=== PATIENT | male | born 1990 | race Caucasian/White ===

== ENCOUNTER 2016-07-19 15:07 | Emergency (ER) | payer OTHER ==
[~2016-07-19] VITALS: Ht 182.9 cm; Wt 140.7 kg
[~2016-07-19 15:07] MED LIST: BACLOFEN10 MG PO; OXAYDO5 MG PO; ULTRAM50 MG PO
[2016-07-19 15:53] LABS: HEMATOCRIT 49.1 % (38.0-50.0); MCH 30.8 PG (29.0-34.0); MCHC 36.3 G/DL (30.0-36.0); MCV 84.9 FL (86-99); MEAN PLAT.VOLUME 12.4 uM^3 (9.0-12.4); PLATELET COUNT 306 K/uL (156-360); RBC DIS.WIDTH-CV 12.6 % (11.8-14.6); RBC DIS.WIDTH-SD 38.3 % (39-53); RED BLOOD COUNT 5.78 M/uL (4.00-5.50); WHITE BLOOD COUNT 12.5 K/uL (4.1-10.2)
[2016-07-19 16:02] LABS: CHLORIDE 96 mEq/L (99-109); POTASSIUM 4.2 mEq/L (3.7-5.4); SODIUM 133 mEq/L (136-147)
[2016-07-19 16:03] LABS: GLUCOSE 390 mg/dL (70-99)
[2016-07-19 16:05] LABS: ANION GAP 19 MEQ/L (2-14)
[2016-07-19 16:07] LABS: GFR ESTIMATE (CALCULATED) > 59 mL/min/
[2016-07-19 16:08] LABS: UREA NITROGEN (BUN) 8 mg/dL (9-23)
[2016-07-19] MEDS ORDERED: BENADRYL50 MG PO (16:27)
[2016-07-19] MEDS ORDERED: PEN-VEE K,VEET500 MG PO (16:27)
[2016-07-19] MEDS ORDERED: PREDNISONE10 MG PO (16:27)
[2016-07-19 16:43] VITALS: BP 145/99
== END 2016-07-19 16:45 | disposition home or self-care (01) ==
LOC: EME 15:07
DX: J02.9 Acute pharyngitis, unspecified (principal); R73.9 Hyperglycemia, unspecified; F17.200 Nicotine dependence, unspecified, uncomplicated
CPT/HCPCS: 71020; 80048; 85027; 99281; 99284

== ENCOUNTER 2016-07-25 07:10 | Emergency (ER) | payer OTHER ==
[~2016-07-25] VITALS: Ht 182.9 cm; Wt 137.0 kg
[~2016-07-25 07:10] MED LIST changes: +BENADRYL50 MG PO; +PEN-VEE K,VEET500 MG PO; +PREDNISONE10 MG PO
[2016-07-25 08:11] LABS: POINT-OF-CARE METER ID UU13113702
[2016-07-25 08:28] LABS: HEMATOCRIT 47.3 % (38.0-50.0); MCH 31.1 PG (29.0-34.0); MCHC 35.7 G/DL (30.0-36.0); MCV 87.1 FL (86-99); MEAN PLAT.VOLUME 11.8 uM^3 (9.0-12.4); PLATELET COUNT 274 K/uL (156-360); RBC DIS.WIDTH-SD 40.8 % (39-53); RED BLOOD COUNT 5.43 M/uL (4.00-5.50); WHITE BLOOD COUNT 12.5 K/uL (4.1-10.2)
[2016-07-25 08:37] LABS: CHLORIDE 97 mEq/L (99-109); POTASSIUM 3.7 mEq/L (3.7-5.4); SODIUM 138 mEq/L (136-147)
[2016-07-25 08:39] LABS: BASOPHIL COUNT 0.1 K/uL (0-0.1); EOSINOPHIL (%) 1.9 % (0-5); EOSINOPHIL COUNT 0.2 K/uL (0-0.3); GLUCOSE 321 mg/dL (70-99); IMMATURE GRANULOCYTE (%) 0.2 % (0.0-0.7); IMMATURE GRANULOCYTE COUNT 0.2 K/uL; LYMPHOCYTE COUNT 1.6 K/uL (1.0-2.8); MONOCYTE (%) 11.4 % (3-12); MONOCYTE COUNT 1.4 K/uL (0-0.8); NEUTROPHIL (%) 73.1 % (45-76); NEUTROPHIL COUNT 9.1 K/uL (1.8-6.4)
[2016-07-25 08:40] LABS: ANION GAP 14 MEQ/L (2-14)
[2016-07-25 08:41] LABS: TOTAL BILIRUBIN 0.5 mg/dL (0.0-1.0)
[2016-07-25 08:42] LABS: ALKALINE PHOSPHATASE 94 IU/L (3-129)
[2016-07-25 08:43] LABS: GFR ESTIMATE (CALCULATED) > 59 mL/min/
[2016-07-25 08:44] LABS: UREA NITROGEN (BUN) 9 mg/dL (9-23)
[2016-07-25 08:58] LABS: ADD MIUA? YES; BILIRUBIN MODERATE; BLOOD TRACE; COLOR YELLOW ((YELLOW)); GLUCOSE (STRIP) >=1000; KETONES >=80; LEUKOCYTES MODERATE; NITRITE NEGATIVE; PH, URINE 6.5 (5-8); PROTEIN (STRIP) 30
[2016-07-25 09:21] LABS: EPITHELIAL CELLS 2+; WHITE BLOOD CELLS TNTC /HPF (0-5)
[2016-07-25 09:22] LABS: BACTERIA 1+; CASTS NONE SEEN /LPF; CRYSTALS NONE SEEN; MUCUS NONE SEEN; RED BLOOD CELLS 0-5 /HPF (0-5); UCUL ADDED? YES
[2016-07-25 09:33] LABS: POINT-OF-CARE METER ID UU13113702
[2016-07-25 09:51] LABS: ICTOTEST NEGATIVE
[2016-07-25 09:52] LABS: SPECIFIC GRAVITY 1.061 (1.000-1.030)
[2016-07-25 10:30] LABS: INTERNAL CONTROL VALID? YES; MONOSPOT (MONONUCLEOSIS SEROL) NEGATIVE
[2016-07-25 10:56] LABS: POINT-OF-CARE METER ID UU13113702
[2016-07-25 11:00] VITALS: BP 131/87
[2016-07-25 13:05] LABS: Estimated Average Glucose 384 mg/dL (70-123)
== END 2016-07-25 11:02 | disposition home or self-care (01) ==
LOC: EME 07:10
PROVIDERS: Physician Assistant
DX: J02.8 Acute pharyngitis due to other specified organisms (principal); J06.9 Acute upper respiratory infection, unspecified; E11.65 Type 2 diabetes mellitus with hyperglycemia; R81 Glycosuria; N39.0 Urinary tract infection, site not specified; D72.829 Elevated white blood cell count, unspecified; F17.200 Nicotine dependence, unspecified, uncomplicated; Z79.4 Long term (current) use of insulin
CPT/HCPCS: 70360; 80053; 81003; 82948; 83036; 85025; 86308; 87086; 99281; 99284; J1100; J7120

== ENCOUNTER 2016-07-28 10:20 | Emergency (ER) | payer OTHER ==
[~2016-07-28] VITALS: Ht 182.9 cm; Wt 140.1 kg
[2016-07-28 10:54] LABS: POINT-OF-CARE METER ID UU13113778
[2016-07-28] MEDS ORDERED: BACTRIM,SEPT1 TABLET PO (11:26)
[2016-07-28] MEDS ORDERED: PERCOCET 5/31 TABLET PO (11:28)
[2016-07-28 12:08] VITALS: BP 132/86
== END 2016-07-28 12:40 | disposition home or self-care (01) ==
LOC: EME 10:20
PROVIDERS: Emergency Medicine
PROC: 0H9HXZZ Drainage of Right Upper Leg Skin, External Approach (ICD-10-PCS; principal; 2016-07-28)
DX: L02.415 Cutaneous abscess of right lower limb (principal); E11.65 Type 2 diabetes mellitus with hyperglycemia; Z79.4 Long term (current) use of insulin; R51 Headache; G89.29 Other chronic pain; F17.200 Nicotine dependence, unspecified, uncomplicated
CPT/HCPCS: 82948; 87070; 87075; 87076; 87205; 99281; 99283